=== PATIENT | female | born 1990 | race Caucasian/White ===

== ENCOUNTER 2016-10-27 23:51 | Emergency (ER) | payer OTHER ==
[~2016-10-27] VITALS: Ht 162.6 cm; Wt 61.4 kg
[~2016-10-27 23:51] MED LIST: ALBU8.5H3 IH; LORA10TA7 PO
[2016-10-28] MEDS ORDERED: DIAZEPAM 5 MG TABLET PO ONE (01:15)
[2016-10-28] MEDS ORDERED: KETOROLAC TROMETHAMINE 60 MG/2 ML VIAL IM ONE (01:15)
[2016-10-28 01:46] VITALS: BP 114/71
== END 2016-10-28 01:48 | disposition home or self-care (01) ==
LOC: EMS 23:52
DX: S46.011A Strain of muscle(s) and tendon(s) of the rotator cuff of right shoulder, initial encounter (principal); M54.2 Cervicalgia; W19.XXXA Unspecified fall, initial encounter; Y93.89 Activity, other specified; Y92.89 Other specified places as the place of occurrence of the external cause; Y99.8 Other external cause status
CPT/HCPCS: 96372; 99283; J1885

== ENCOUNTER 2019-05-21 03:05 | Emergency (ER) | payer OTHER ==
[~2019-05-21] VITALS: Ht 165.1 cm; Wt 61.4 kg
[2019-05-21 03:41] LABS: APPEARANCE,URINE TURBID (CLEAR); BILIRUBIN,URINE NEGATIVE (NEGATIVE); GLUCOSE, URINE (UA) NEGATIVE (NEGATIVE); KETONES,URINE NEGATIVE (NEGATIVE); LEUKOCYTE ESTERASE ,URINE LARGE (NEGATIVE); NITRATE,URINE NEGATIVE (NEGATIVE); OCCULT BLOOD,URINE LARGE (NEGATIVE); PH,URINE 5.5 (5.0-8.0); PROTEIN,URINE SEE CONFIRM (NEGATIVE); UROBILINOGEN,URINE 0.2 mg/dL (<=1.0)
[2019-05-21 03:53] LABS: BACTERIA,URINE Rare /HPF (None Seen); CALCIUM OXALATE CRYSTALS,UR Rare /LPF (None Seen); SQUAMOUS EPITHELIAL CELL,UR Few /LPF (None Seen); SULFOSALICYLIC ACID,URINE 4+ (Negative); WBC,URINE 51-100 /HPF (0-5)
[2019-05-21 04:17] VITALS: BP 121/77
[2019-05-21] MEDS ORDERED: CEPHALEXIN MONOHYDRATE 500 MG CAPSULE PO ONE (05:00)
[2019-05-21] MEDS ORDERED: PHENAZOPYRIDINE HCL 100 MG TABLET PO ONE (05:00)
[2019-05-21] MEDS ORDERED: ONDANSETRON HCL 4 MG/2 ML VIAL IM ONE (05:00)
[2019-05-21] MEDS ORDERED: ACETAMINOPHEN 500 MG TABLET PO ONE (05:00)
== END 2019-05-21 05:05 | disposition home or self-care (01) ==
LOC: EMS 03:05
DX: N39.0 Urinary tract infection, site not specified (principal)
CPT/HCPCS: 81001; 81025; 87086; 96372; 99284; J2405

== ENCOUNTER 2021-04-17 07:23 | Emergency (ER) | payer OTHER ==
[~2021-04-17] VITALS: Ht 165.1 cm; Wt 68.2 kg
[2021-04-17 07:24] VITALS: BP 121/73
[2021-04-17] MEDS ORDERED: ACETAMINOPHEN 500 MG TABLET PO ONE (08:15)
[2021-04-17] MEDS ORDERED: BENZONATATE 100 MG CAPSULE PO ONE (08:15)
[2021-04-17] MEDS ORDERED: GuaiFENesin/D-METHORPHAN [SUGAR-FREE] 200-20MG/10 ML SYRUP UDCUP PO ONE (08:15)
[2021-04-17] MEDS ORDERED: PROMETHAZINE HCL/CODEINE 6.25-10MG/5ML SYRUP UDCUP PO ONE (08:30)
[2021-04-17 08:33] LABS: COVID AG,FIA SOURCE NASAL SWAB
[2021-04-17 08:56] LABS: INFLUENZA TYPE A NEGATIVE FOR TYPE A (NEGATIVE); INFLUENZA TYPE B NEGATIVE FOR TYPE B (NEGATIVE)
== END 2021-04-17 09:32 | disposition home or self-care (01) ==
LOC: EMS 07:23
DX: J40 Bronchitis, not specified as acute or chronic (principal); J06.9 Acute upper respiratory infection, unspecified; J30.9 Allergic rhinitis, unspecified; Z20.822 Contact with and (suspected) exposure to COVID-19
CPT/HCPCS: 71045; 87804; 99284

== ENCOUNTER 2021-04-21 01:47 | Emergency (ER) | payer OTHER ==
[~2021-04-21] VITALS: Ht 165.1 cm; Wt 68.1 kg
[2021-04-21 01:52] VITALS: BP 143/72
[2021-04-21] MEDS ORDERED: ALBUTEROL SULFATE 2.5 MG/0.5 ML NEB SOLUTION NEB ONE (03:30)
[2021-04-21] MEDS ORDERED: 0.9% SODIUM CHLORIDE 5 ML NEB SOLUTION NEB ONE (03:32)
== END 2021-04-21 03:51 | disposition home or self-care (01) ==
LOC: EMS 01:48
DX: J40 Bronchitis, not specified as acute or chronic (principal); Z20.822 Contact with and (suspected) exposure to COVID-19
CPT/HCPCS: 94640; 99283; U0003

== ENCOUNTER 2021-09-16 15:03 | Emergency (ER) | payer OTHER ==
[~2021-09-16] VITALS: Ht 165.1 cm; Wt 61.4 kg
[2021-09-16] MEDS ORDERED: IBUP-2759 PO (15:15)
[2021-09-16] MEDS ORDERED: ACET-2080 PO (16:18)
[2021-09-16] MEDS ORDERED: PROM473S9 PO (16:18)
[2021-09-16] MEDS ORDERED: ALBU8HFA IH (16:18)
[2021-09-16] MEDS ORDERED: PRED-554 PO (16:18)
[2021-09-16] MEDS ORDERED: IBUP-1554 PO (16:18)
[2021-09-16] MEDS ORDERED: AUD NEB (16:18)
[2021-09-16] MEDS ORDERED: PROM473S4 PO (17:11)
[2021-09-16 17:30] VITALS: BP 134/79
== END 2021-09-16 17:32 | disposition home or self-care (01) ==
LOC: EMS 15:03
DX: J40 Bronchitis, not specified as acute or chronic (principal); J06.9 Acute upper respiratory infection, unspecified; R07.89 Other chest pain
CPT/HCPCS: 71045; 99283

== ENCOUNTER 2022-01-27 20:05 | Emergency (ER) | payer OTHER ==
[~2022-01-27] VITALS: Ht 165.1 cm; Wt 71.8 kg
[~2022-01-27 20:05] MED LIST changes: +ACET-2080 PO; -ALBU8.5H3 IH; +ALBU8HFA IH; +AUD NEB; +IBUP-1554 PO; +IBUP-2759 PO; -LORA10TA7 PO; +PRED-554 PO; +PROM473S4 PO
[2022-01-27] MEDS ORDERED: KETOROLAC TROMETHAMINE 30 MG/ML VIAL IM ONE (21:15)
[2022-01-27] MEDS ORDERED: ACETAMINOPHEN 500 MG TABLET PO ONE (21:15)
[2022-01-27] MEDS ORDERED: LIDO700A15 TP (21:32)
[2022-01-27] MEDS ORDERED: IBUP-2070 PO (21:32)
[2022-01-27 21:48] VITALS: BP 129/75
== END 2022-01-27 21:57 | disposition home or self-care (01) ==
LOC: EMS 20:06
DX: S06.0XAA Concussion with loss of consciousness status unknown, initial encounter (principal); J45.909 Unspecified asthma, uncomplicated; V89.2XXA Person injured in unspecified motor-vehicle accident, traffic, initial encounter; Y93.89 Activity, other specified; Y92.89 Other specified places as the place of occurrence of the external cause; Y99.8 Other external cause status; Z87.440 Personal history of urinary (tract) infections
CPT/HCPCS: 99283; 96372; J1885

== ENCOUNTER 2022-02-03 06:00 | Emergency (ER) | payer OTHER ==
[~2022-02-03] VITALS: Ht 165.1 cm; Wt 71.8 kg
[~2022-02-03 06:00] MED LIST changes: +IBUP-2070 PO; +LIDO700A15 TP
[2022-02-03 06:22] LABS: COVID AG,FIA SOURCE NASAL SWAB
[2022-02-03 06:40] LABS: INFLUENZA TYPE A NEGATIVE FOR TYPE A (NEGATIVE); INFLUENZA TYPE B NEGATIVE FOR TYPE B (NEGATIVE)
[2022-02-03] MEDS ORDERED: PredniSONE 20 MG TABLET PO ONE (08:00)
[2022-02-03 08:31] VITALS: BP 127/85
[2022-02-03] MEDS ORDERED: IBUPROFEN 600 MG TABLET PO ONE (09:30)
[2022-02-03] MEDS ORDERED: OXYMETAZOLINE HCL 0.05% 15 ML NASAL SPRAY NASAL ONE (09:30)
[2022-02-03] MEDS ORDERED: AMOX500C2 PO (09:34)
== END 2022-02-03 10:03 | disposition home or self-care (01) ==
LOC: EMS 06:02
DX: J32.9 Chronic sinusitis, unspecified (principal); Z98.890 Other specified postprocedural states; Z20.822 Contact with and (suspected) exposure to COVID-19
CPT/HCPCS: 99284; 87426; 87804; J7512